=== PATIENT | male | born 1995 | race Hispanic/Latino ===

== ENCOUNTER 2023-11-04 17:41 | Emergency (ER) | payer SELFPAY ==
[2023-11-04] MEDS ORDERED: Ibuprofen 200 MG TAB ONE (18:36)
[2023-11-04] MEDS ORDERED: Dicyclomine 20 MG/2 ML VIAL ONE (18:36)
[2023-11-04] MEDS ORDERED: Ondansetron ODT 4 MG TAB ONE (18:36)
[2023-11-04 19:31] LABS: Influenza A by NAA Not Detected (NotDetected); Influenza B by NAA Not Detected (NotDetected); SARS-CoV-2 NAA Rapid Test Not Detected (NotDetected)
== END 2023-11-04 19:41 | disposition home or self-care (01) ==
LOC: CSHERS 17:41
DX: K52.9 Noninfective gastroenteritis and colitis, unspecified (principal)
CPT/HCPCS: 96372; Q0162